=== PATIENT | female | born 1965 | race Caucasian/White ===

== ENCOUNTER → 2016-08-03 | Outpatient (CLI) | payer BC ==
[~2016-08-03] VITALS: Ht 160 cm; Wt 106.6 kg
[~2016-08-03] MED LIST: LEVO125T3 PO; METF500T PO; NS 1,000 ML IV SCH; PROPOFOL 200 MG/20 ML VIAL As Ordered ONE; SIMV40TA2 PO; VITA2000 PO
--- NOTE | 2016-08-03 14:49 | ROOR ---
Patient Name: Nela Shi Procedure Date: 08/03/2016 2:28 PM Date of : 1965 Age: 51 Room: [facility] Gender: Female Note Status: Finalized Procedure: Colonoscopy Indications: Screening in patient at increased risk: Colorectal cancer in father before age 60 Providers: Davidson SHELTON MD Referring MD: ANGELA PARNELL NP Requesting Provider: Medicines: Monitored Anesthesia Care Complications: No immediate complications. Procedure: Pre-Anesthesia Assessment: - The heart rate, respiratory rate, oxygen saturations, blood pressure, adequacy of pulmonary ventilation, and response to care were monitored throughout the procedure. The Colonoscope was introduced through the anus and advanced to the cecum, identified by appendiceal orifice and ileocecal valve. The colonoscopy was performed without difficulty. The patient tolerated the procedure well. The quality of the bowel preparation was good. Findings: The perianal and digital rectal examinations were normal. (Exam: Complete, Prep: Good or Excellent.) Small Internal Hemorrhoids. The entire examined colon appeared normal on direct and retroflexion views. Impression: - (Exam: Complete, Prep: Good or Excellent.) - Small Internal Hemorrhoids. - The entire colon is normal on direct and retroflexion views. - No specimens collected. Recommendation: - Repeat colonoscopy in 5 years for screening purposes. Davidson Shelton MD Davidson SHELTON MD 08/03/2016 2:48:38 PM This report has been signed electronically. Number of Addenda: 0 Note Initiated On: 08/03/2016 2:28 PM Estimated Blood Loss: Estimated blood loss: none.
[2016-08-03 15:08] VITALS: BP 147/83
== END | disposition home or self-care (01) ==
LOC: M OPP 14:01
PROVIDERS: ATTEND Internal Medicine Gastroenterology
DX: Z12.11 Encounter for screening for malignant neoplasm of colon (principal); Z80.0 Family history of malignant neoplasm of digestive organs; K64.8 Other hemorrhoids; E78.5 Hyperlipidemia, unspecified; E03.9 Hypothyroidism, unspecified; R06.83 Snoring; E11.9 Type 2 diabetes mellitus without complications; M19.90 Unspecified osteoarthritis, unspecified site; Z87.891 Personal history of nicotine dependence; Z79.84 Long term (current) use of oral hypoglycemic drugs; Z79.899 Other long term (current) drug therapy
CPT/HCPCS: 99156; 99157; G0105

== ENCOUNTER 2018-03-21 06:06 | Day surgery (SDC) | payer BC ==
[~2018-03-21 06:06] MED LIST changes: -LEVO125T3 PO; +LR 1,000 ML IV; -METF500T PO; -NS 1,000 ML IV SCH; -PROPOFOL 200 MG/20 ML VIAL As Ordered ONE; -SIMV40TA2 PO; -VITA2000 PO
[2018-03-21 06:53] LABS: BEDSIDE GLUCOSE 181 MG/DL (70-105)
[2018-03-21] MEDS: BUPIVACAINE/EPIN 0.25% 30 ML VIAL As Ordered (07:45)
[2018-03-21] MEDS ORDERED: fentaNYL 250 MCG/5 ML INJECTION (J3010) As Ordered (07:49)
[2018-03-21] MEDS ORDERED: MIDAZOLAM INJ 2 MG/2 ML VIAL (J2250) As Ordered (07:49)
[2018-03-21] MEDS ORDERED: KETOROLAC 60 MG/2 ML VIAL (J1885) As Ordered (07:49)
[2018-03-21] MEDS ORDERED: PHENYLephrine HCL 500 MCG/5 ML (100MCG/ML) SYRINGE (J2370) As Ordered (07:49)
[2018-03-21] MEDS ORDERED: PROPOFOL 200 MG/20 ML VIAL As Ordered (07:49)
[2018-03-21] MEDS ORDERED: dexameTHASONE 4 MG/ML 1ML VIAL (J1100) As Ordered (07:49)
[2018-03-21] MEDS ORDERED: ROCURONIUM BROMIDE 50 MG/5 ML VIAL As Ordered ×2 (07:49→07:55)
[2018-03-21] MEDS ORDERED: ONDANSETRON 4MG/2ML VIAL (J2405) As Ordered (07:49)
[2018-03-21] MEDS ORDERED: LIDOCAINE 2% INJ 100 MG/5 ML SDV (FOR ANES.) As Ordered (07:49)
[2018-03-21] MEDS ORDERED: GLYCOPYRROLATE INJ 0.2 MG/ML 2 ML VIAL As Ordered ×3 (07:52)
[2018-03-21] MEDS ORDERED: NEOSTIGMINE 10 MG/10 ML VIAL (J2710) As Ordered (07:53)
[2018-03-21] MEDS ORDERED: ePHEDrine SULFATE 25 MG/5 ML(5MG/ML) SYRINGE As Ordered (08:03)
[2018-03-21] MEDS ORDERED: LR 1,000 ML IV (09:00)
[2018-03-21] MEDS ORDERED: MORPHINE 10 MG/ML 1ML VIAL (J2270) IV (09:00)
[2018-03-21] MEDS ORDERED: NORCO, ANEXSIA 5/325MG TABLET (HYDROcodone/ACETAMINOPHEN) PO (09:00)
[2018-03-21] MEDS: PERCOCET 5MG/325MG TAB PO (09:00)
[2018-03-21] MEDS: fentaNYL 100 MCG/2 ML INJECTION (J3010) IV ×3 (09:05→09:15)
[2018-03-21] MEDS: ONDANSETRON 4MG/2ML VIAL (J2405) IV (09:05)
[2018-03-21] MEDS ORDERED: METOCLOPRAMIDE INJ 10MG/2ML VIAL (J2765) As Ordered (09:35)
[2018-03-21] MEDS: METOCLOPRAMIDE INJ 10MG/2ML VIAL (J2765) IV (09:40)
== END 2018-03-21 11:08 | disposition home or self-care (01) ==
LOC: M SDC 06:06
DX: K80.10 Calculus of gallbladder with chronic cholecystitis without obstruction (principal); I10 Essential (primary) hypertension; E03.9 Hypothyroidism, unspecified; E11.9 Type 2 diabetes mellitus without complications; E78.00 Pure hypercholesterolemia, unspecified; M17.0 Bilateral primary osteoarthritis of knee; Z78.0 Asymptomatic menopausal state; E66.9 Obesity, unspecified; Z68.38 Body mass index [BMI] 38.0-38.9, adult; Z79.899 Other long term (current) drug therapy; Z79.84 Long term (current) use of oral hypoglycemic drugs; Z87.891 Personal history of nicotine dependence
CPT/HCPCS: 47562

== ENCOUNTER 2021-10-27 17:32 | Emergency (ER) | payer BC ==
[~2021-10-27] VITALS: Ht 165.1 cm; Wt 90.9 kg
[~2021-10-27 17:32] MED LIST changes: +FISH7.5C PO; +GLIP5TAB20 PO; +LEVO125T4 PO; -LR 1,000 ML IV; +METF10004 PO; +METF500T13 PO; +SIMV20TA22 PO; +SIMV40TA20 PO; +VITA2000 PO
[2021-10-27] MEDS ORDERED: SEMA7TAB2 (17:57)
[2021-10-27] MEDS ORDERED: NIRM1TAB6 (17:57)
[2021-10-27] MEDS ORDERED: NS 1,000 ML IV ONE ×2 (20:30→22:45)
[2021-10-27] MEDS ORDERED: ONDANSETRON 4MG/2ML VIAL IV ONE (20:30)
[2021-10-27 20:58] LABS: VENOUS BASE EXCESS -0.4 (-2.0-2.0); VENOUS HCO3 23.6 MEQ/L (23.0-27.0); VENOUS O2 SATURATION 93.4 % (60.0-80.0); VENOUS PARTIAL PRESSURE CO2 37.1 mmHg (38.0-50.0); VENOUS PARTIAL PRESSURE O2 66.6 mmHg (30.0-50.0); VENOUS PH 7.421 UNITS (7.330-7.430); VENOUS TOTAL CO2 24.7 MEQ/L (24.0-28.0)
[2021-10-27 21:01] LABS: BASO % 0.4 % (0.0-1.0); EOS # 0.1 10^3/uL (0.0-0.5); EOS % 1.1 % (0.0-3.0); HEMATOCRIT 45.8 % (36.0-47.0); HEMOGLOBIN 15.9 g/dl (12.0-15.5); LYMPH # 3.1 10^3/uL (1.5-5.0); LYMPH % 32.1 % (24.0-44.0); MEAN CORPUSCULAR HEMOGLOBIN 29.6 pg (27.0-33.0); MEAN CORPUSCULAR HGB CONC 34.7 g/dl (32.0-36.5); MEAN CORPUSCULAR VOLUME 85.1 fl (80.0-96.0); MONO # 0.8 10^3/uL (0.0-0.8); MONO % 8.6 % (2.0-8.0); NEUTROPHILS # 5.6 10^3/uL (1.5-8.5); NEUTROPHILS % 57.3 % (36.0-66.0); PLATELET COUNT, AUTOMATED 409 10^3/uL (150-450); RED BLOOD COUNT 5.38 10^6/uL (4.00-5.40); WHITE BLOOD COUNT 9.8 10^3/uL (4.0-10.0)
[2021-10-27 22:35] LABS: ALBUMIN 3.5 GM/DL (3.2-5.2); ALT/SGPT 22 U/L (12-78); BILIRUBIN,DIRECT 0.1 MG/DL (0.0-0.2); BILIRUBIN,TOTAL 0.3 MG/DL (0.2-1.0); BLOOD UREA NITROGEN 22 MG/DL (7-18); CALCIUM LEVEL 8.2 MG/DL (8.5-10.1); CARBON DIOXIDE LEVEL 25 MEQ/L (21-32); CHLORIDE LEVEL 101 MEQ/L (98-107); CREATININE FOR GFR 0.88 MG/DL (0.55-1.30); GLOMERULAR FILTRATION RATE > 60.0 (>51); GLUCOSE, FASTING 160 MG/DL (70-100); LIPASE 89 U/L (73-393); SODIUM LEVEL 135 MEQ/L (136-145); TOTAL PROTEIN 6.5 GM/DL (6.4-8.2)
[2021-10-28] MEDS ORDERED: ONDA4TAB6 PO (01:04)
[2021-10-28] MEDS ORDERED: ONDANSETRON 4MG ORAL DISINTEGRATING TAB PO ONE (01:15)
[2021-10-28 01:37] VITALS: BP 125/64
== END 2021-10-28 01:41 | disposition home or self-care (01) ==
LOC: M ED 17:32
DX: K52.9 Noninfective gastroenteritis and colitis, unspecified (principal); E86.0 Dehydration; E87.6 Hypokalemia; E11.9 Type 2 diabetes mellitus without complications; I10 Essential (primary) hypertension; E78.5 Hyperlipidemia, unspecified; E03.9 Hypothyroidism, unspecified; Z79.899 Other long term (current) drug therapy; Z79.890 Hormone replacement therapy; Z79.84 Long term (current) use of oral hypoglycemic drugs; Z88.8 Allergy status to other drugs, medicaments and biological substances
CPT/HCPCS: 74176; 80048; 80076; 82010; 82803; 83690; 85025; 96361; 96374; 99284; J2405

== ENCOUNTER → 2022-02-15 | Outpatient (CLI) | payer BC ==
[~2022-02-15] MED LIST changes: +D3 H2000 PO; +FISH10005 PO; -FISH7.5C PO; +IBUP200C25 PO; +MAGN400T35 PO; +NIRM1TAB6; +ONDA4TAB6 PO; +SEMA7TAB2
== END ==
LOC: M LABSMTC 10:46
PROVIDERS: ATTEND Anesthesiology
DX: Z01.818 Encounter for other preprocedural examination (principal); Z11.52 Encounter for screening for COVID-19

== ENCOUNTER 2022-02-20 06:34 | Day surgery (SDC) | payer BC ==
[~2022-02-20] VITALS: Ht 162.6 cm; Wt 94.3 kg
[~2022-02-20 06:34] MED LIST changes: +NS 1,000 ML IV ONE
[2022-02-20] MEDS ORDERED: propofoL 200 MG/20 ML VIAL As Ordered ONE (06:50)
[2022-02-20] MEDS ORDERED: LIDOCAINE 2% 100MG/5ML SDV (FOR ANES.) As Ordered ONE ×2 (06:51→06:59)
[2022-02-20 08:10] VITALS: BP 185/75
== END 2022-02-20 08:17 | disposition home or self-care (01) ==
LOC: M OPP 06:34
PROVIDERS: ATTEND Internal Medicine Gastroenterology
DX: Z12.11 Encounter for screening for malignant neoplasm of colon (principal); Z80.0 Family history of malignant neoplasm of digestive organs; E03.9 Hypothyroidism, unspecified; E11.9 Type 2 diabetes mellitus without complications; E78.5 Hyperlipidemia, unspecified; Z79.02 Long term (current) use of antithrombotics/antiplatelets; Z79.84 Long term (current) use of oral hypoglycemic drugs; Z79.899 Other long term (current) drug therapy; Z88.8 Allergy status to other drugs, medicaments and biological substances; Z87.891 Personal history of nicotine dependence; Z80.3 Family history of malignant neoplasm of breast